=== PATIENT | male | born 1975 | race African-American/Black ===

== ENCOUNTER 2017-05-22 18:15 | Emergency (ER) | payer OTHER ==
[2017-05-22 18:25] VITALS: BP 148/91; PULSE 88; TEMP 98.1; BMI 34.9
[2017-05-22] MEDS ORDERED: IBUPROFEN 400 MG TABLET (FP) PO PRN (18:47)
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
[2017-05-22] MEDS ORDERED: IBUPROFEN 400 MG TABLET (FP) PO ONE (18:57)
== END 2017-05-22 19:02 | disposition home or self-care (01) ==
LOC: FER 18:15
CPT/HCPCS: 99282-25

== ENCOUNTER 2020-10-12 03:27 | Emergency (ER) | payer OTHER ==
[2020-10-12 03:32] VITALS: BP 158/93; PULSE 77; TEMP 98; BMI 37.5
[2020-10-12] MEDS ORDERED: POLYETHYLENE GLYCOL 3350 119 GM BTL PO ONE (03:34)
[2020-10-12] MEDS ORDERED: LACTULOSE 20 GM/30 ML UDC (FOR ORAL USE ONLY) PO ONE (03:35)
[2020-10-12] MEDS ORDERED: LACTULOSE 20 GM/30 ML UDC (FOR ORAL USE ONLY) ONE (03:43)
== END 2020-10-12 03:48 | disposition home or self-care (01) ==
LOC: FER 03:27
DX: R14.1 Gas pain (principal)
CPT/HCPCS: 93005; 99284-25

== ENCOUNTER 2021-02-28 15:37 | Emergency (ER) | payer OTHER ==
[2021-02-28 15:50] VITALS: BMI 37.5
[2021-02-28] MEDS ORDERED: ACETAMINOPHEN 500 MG TABLET (FP) PO ONE (15:55)
[2021-02-28] MEDS ORDERED: ACETAMINOPHEN 325 MG TABLET (FP) ONE (15:59)
[2021-02-28] MEDS ORDERED: DIPHTH,PERTUSS(ACELL),TET 0.5 ML DISP.SYRIN IM ONE ×2 (16:25→16:28)
[2021-02-28] MEDS ORDERED: AMOX TR/POT CLAV 875MG/125MG TABLETS (FP) PO ONE (16:27)
[2021-02-28] MEDS ORDERED: AMOX TR/POT CLAV 875MG/125MG TABLETS (FP) ONE (16:27)
[2021-02-28] MEDS ORDERED: LIDOCAINE HCL 2% (50ML VIAL) INF ONE (16:58)
[2021-02-28] MEDS ORDERED: LIDO 2%/EPI 1:200000 PRESRVFRE (20 ML SDVIAL) ONE (17:16)
[2021-02-28] MEDS ORDERED: LIDOCAINE HCL 2% (20ML MULTI-DOSE VIAL) ONE (17:21)
[2021-02-28 17:47] VITALS: BP 137/94; PULSE 69; TEMP 98.5
== END 2021-02-28 19:41 | disposition home or self-care (01) ==
LOC: FER 15:37
PROC: 3E0234Z Introduction of Serum, Toxoid and Vaccine into Muscle, Percutaneous Approach (ICD-10-PCS; principal; 2021-02-28)
DX: S62.316A Displaced fracture of base of fifth metacarpal bone, right hand, initial encounter for closed fracture (principal); W22.8XXA Striking against or struck by other objects, initial encounter
CPT/HCPCS: 73130-TC-RT-FY; 90715; 99283-25